=== PATIENT | female | born 1965 | race Caucasian/White ===

== ENCOUNTER 2017-03-11 11:06 | Emergency (ER) | payer BC ==
--- NOTE | 2017-03-11 12:30 | UC ---
Lower Extremity/Ankle HPI - HPI Summary HPI Summary: fell on stairs last night right lateral foot pain, bruising and swelling - History of Current Complaint Chief Complaint: UCLowerExtremity Stated Complaint: RT FOOT INJURY Time Seen by Provider: 03/11/17 12:24 Hx Obtained From: Patient ?: No Onset/Duration: Sudden Onset, Lasting Days - 1, Still Present Severity Initially: Moderate Severity Currently: Moderate Aggravating Factor(s): Standing, Ambulation Alleviating Factor(s): Rest, Elevation Able to Bear Weight: Yes - with pain and guarding - Allergies/Home Medications Allergies/Adverse Reactions: Allergies Allergy/AdvReac Type Severity Reaction Status Date / Time Ampicillin Allergy Hives, Verified 03/11/17 12:31 Swelling Home Medications: Home Medications Sertraline* [Zoloft*] 200 mg PO DAILY 03/11/17 [History Confirmed 03/11/17] PMH/Surg Hx/FS Hx/Imm Hx Previously Healthy: No Psychological History: Depression - Family History Known Family History: Positive: None - Social History Occupation: Employed Full-time Lives: With Family Alcohol Use: None Substance Use Type: None Review of Systems Constitutional: Negative Skin: Bruising - lateral right foot Eyes: Negative ENT: Negative Respiratory: Negative Cardiovascular: Negative Gastrointestinal: Negative Genitourinary: Negative Motor: Negative Neurovascular: Negative Musculoskeletal: Negative - mid right fifth MT pain, Arthralgia Neurological: Negative Psychological: Negative Is Patient Immunocompromised?: No All Other Systems Reviewed And Are Negative: Yes Physical Exam Triage Information Reviewed: Yes Appearance: Well-Appearing, Well-Nourished, Pain Distress - mild Vital Signs Reviewed: Yes Eye Exam: Normal Eyes: Positive: Conjunctiva Clear ENT Exam: Normal ENT: Positive: Normal ENT inspection, Hearing grossly normal, Pharynx normal. Negative: Nasal congestion, Nasal drainage, Trismus, Muffled voice, Hoarse voice , Dental tenderness Dental Exam: Normal Neck exam: Normal Neck: Positive: Supple, Nontender Respiratory Exam: Normal Respiratory: Positive: Chest non-tender, No respiratory distress, No accessory muscle use Cardiovascular Exam: Normal Cardiovascular: Positive: RRR, Pulses Normal, Brisk Capillary Refill Musculoskeletal Exam: Normal Musculoskeletal: Positive: Strength Intact, ROM Intact, Edema @ - lateral right foot Neurological Exam: Normal Neurological: Positive: Alert, Muscle Tone Normal Psychological Exam: Normal Skin Exam: Normal Skin: Positive: Other - bruising right lateral foot Diagnostics - Radiology No standard instances Xray Interpretation: Positive (See Comments) - Comminuted, displaced angulated fracture of midshaff 5th metatarsal Radiology Interpretation Completed By: ED Physician, Radiologist Lower Extremity Course/Dx - Course Course Of Treatment: erich, cam, crutches rice, pain control, non-weightbearing untill evaluated by ortho-- - Differential Dx/Diagnosis Provider Diagnoses: communited angulated displaced fracture mid shaft of 5th metatarsal Discharge - Discharge Plan Condition: Stable Disposition: HOME Prescriptions: Ibuprofen TAB* [Motrin TAB* 600 MG] 600 mg PO Q6H PRN #40 tab PRN Reason: pain Patient Education Materials: Crutch Instructions (ED), Foot Fracture in Adults (ED), RICE Therapy (ED) Forms: *Work Release Referrals: Naif Cabral MD [Medical Doctor] - 2 Days aFdia Ellis MD [Primary Care Provider] - Additional Instructions: Please remain non weight bearing until seen by orthopedic MD
[2017-03-11 12:34] VITALS: BP 103/63
--- NOTE | 2017-03-11 13:05 | RAD ---
INDICATION: Right foot injury. TECHNIQUE: 3 views of the right foot were obtained. FINDINGS: There is dorsal and lateral soft tissue swelling. There is a transverse comminuted fracture of the mid to distal diaphysis of the fifth metatarsal. The distal fragment is displaced one shaft diameter medial relative the proximal fragment. The fracture fragments are overriding. In addition there is lateral angulation of the distal fragment relative to the proximal fragment. No other fractures are seen. IMPRESSION: COMMINUTED, DISPLACED AND ANGULATED FRACTURE OF THE FIFTH METATARSAL.
== END 2017-03-11 13:19 | disposition home or self-care (01) ==
LOC: UCCORT 11:06
DX: S62.326A Displaced fracture of shaft of fifth metacarpal bone, right hand, initial encounter for closed fracture (principal); W10.9XXA Fall (on) (from) unspecified stairs and steps, initial encounter; Y93.9 Activity, unspecified; Y92.9 Unspecified place or not applicable; F32.9 Major depressive disorder, single episode, unspecified
CPT/HCPCS: 99213; G0463